=== PATIENT | male | born 1980 | race Two or more races ===

== ENCOUNTER 2020-11-23 22:27 | Inpatient (IN) | payer MEDICAID, OTHER ==
[~2020-11-23] VITALS: Ht 165.1 cm; Wt 118.4 kg
--- NOTE | 2020-11-23 22:31 | NUR ---
MARTHA 61 FROM HOME FOR POSSIBLE TONIC CLONIC SEIZURE X 1 MIN. FIELD BS 118, PT AAOX4, -SOB, NOT IN ACUTE DISTRESS, VSS, PENDING ER PROVIDER RAYA
--- NOTE | 2020-11-23 22:52 | NUR ---
PIV STARTED, BLOOD COLLECTED, SENT TO LAB
[2020-11-23 23:13] LABS: BASOPHILS % (AUTO) 0.3 % (0.0-2.0); EOSINOPHILS % (AUTO) 1.8 % (0.0-6.0); HEMATOCRIT 40 % (39-51); HEMOGLOBIN 13.1 g/dL (13.5-17.5); LYMPHOCYTES # (AUTO) 3.2 /CMM (0.8-4.8); LYMPHOCYTES % (AUTO) 37.6 % (20.0-44.0); MEAN CORPUSCULAR HGB CONC 33 g/dl (31.0-36.0); MEAN CORPUSCULAR VOLUME 90 fL (80-96); MONOCYTES # (AUTO) 0.6 /CMM (0.1-1.30); MONOCYTES % (AUTO) 7.2 % (2.0-12.0); NEUTROPHILS # (AUTO) 4.6 /CMM (1.8-8.9); NEUTROPHILS % (AUTO) 53.1 % (43.0-81.0); PLATELET COUNT (AUTO) 258 /CMM (150-450); RED BLOOD CELL COUNT(AUTO) 4.45 MIL/uL (4.5-6.0); WHITE BLOOD COUNT (AUTO) 8.6 K/uL (4.3-11.0)
[2020-11-23 23:40] LABS: CALCIUM, SERUM 8.8 mg/dL (8.5-10.1); CARBON DIOXIDE 22 mmol/L (21-32); CHLORIDE 103 mmol/L (98-107); GLUCOSE 120 mg/dL (74-106); POTASSIUM 3.5 mmol/L (3.5-5.1); SODIUM SERUM 139 mmol/L (136-145); UREA NITROGEN, BLOOD 14 mg/dL (7-18)
[2020-11-23 23:46] LABS: ALANINE AMINOTRANSFERASE 48 U/L (12-78); ALCOHOL, BLOOD < 3 mg/dL (0-0); ALKALINE PHOSPHATASE 93 U/L (46-116); ASPARTATE AMINOTRANSFERASE 22 U/L (15-37); BILIRUBIN,DIRECT 0.1 mg/dL (0.0-0.2); BILIRUBIN,TOTAL 0.5 mg/dL (0.2-1.0); TOTAL PROTEIN, SERUM 9.1 g/dL (6.4-8.2)
[2020-11-24] MEDS ORDERED: HYDROCODONE/APAP 5/325MG TABLET PO PRN (01:00)
[2020-11-24] MEDS ORDERED: MAG HYDROX/AL HYDROX/SIMETH 30 ML UDC PO PRN (01:00)
[2020-11-24] MEDS ORDERED: LORAZEPAM INJ 2 MG/ML VIAL IV PRN (01:00)
[2020-11-24] MEDS ORDERED: ONDANSETRON HCL/PF 4 MG/2 ML VIAL IVP PRN (01:00)
[2020-11-24] MEDS ORDERED: ZOLPIDEM TARTRATE 5 MG TABLET PO PRN (01:00)
[2020-11-24] MEDS ORDERED: Z GUARD REMEDY 2 OZ OINT TP PRN (01:00)
[2020-11-24] MEDS ORDERED: ACETAMINOPHEN 325 MG TABLET PO PRN (01:00)
--- NOTE | 2020-11-24 01:44 | NUR ---
TELE 120-1
--- NOTE | 2020-11-24 01:52 | NUR ---
REPORT GIVEN TO CHARLOTTE OCONNOR FOR ISIAH
--- NOTE | 2020-11-24 02:00 | NUR ---
rn note. admission. pt being admitted for seizure at home witnessed by family. pt awake, alert. follow command. room air, sat 97%. no acute distress noted . hob elevated. seizure precaution initiated. will continue to monitor vitals
--- NOTE | 2020-11-24 02:18 | NUR ---
PT TRANSPORTED TO 1ST FLOOR
[2020-11-24 03:54] VITALS: BP 128/65
[2020-11-24 04:00] VITALS: BP 132/65
--- NOTE | 2020-11-24 05:51 | NUR ---
RN NOTE AM CARE GIVEN.DURING SHIFT NO SEIZURE ACTIVITY NOTED. AFEBRILE. 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 HOB ELEVATED. WILL CONTINUE TO MONITOR VITALS
--- NOTE | 2020-11-24 07:45 | NUR ---
TELE/RN PT IS RESTING IN THE BED .AWAKE,ALERT. V/S STABLE,AFEBRILE.ON ROOM AIR,SAT O2-99%.NO SEIZURES ACTIVITIES NOTED.IV-HL.SKIN INTACT. LABS REVIEW.
[2020-11-24 09:00] VITALS: BP 123/72
--- NOTE | 2020-11-24 09:00 | NUR ---
TELE/RN DUE MEDS ARE GIVEN ORDERED.PT EATS 100% FROM HIS BREAKFAST TRAY.MD SEEN THE PT.WAITING FOR NEUROLOGIST SEEN THE PT.
[2020-11-24] MEDS: ENOXAPARIN SODIUM 40 MG/0.4 ML DISP.SYRIN SQ SCH (09:25)
[2020-11-24 12:00] VITALS: BP 119/72
[2020-11-24] MEDS: IV NS 0.9% 1,000 ML IV PRN ×2 (13:22→22:42)
[2020-11-24 16:00] VITALS: BP 128/72
--- NOTE | 2020-11-24 19:30 | NUR ---
MS RN OPENING NOTE RECEIVED PATIENT IN BED. A/OX4. TOLERATING ROOM AIR. RESPIRATIONS ARE EVEN AND UNLABORED. NO S/S SOB NOTED. NO C/O PAIN. IN NO APPARENT DISTRESS. IV ACCESS IN LAC#18 PATENT AND SALINE LOCKED. BED IS LOW AND LOCKED, HOB ELEVATED IN SEMI FOWLERS, SIDE RIALS UP X2, CALL LIGHT WITHIN REACH. WILL CONTINUE TO MONITOR THROUGHOUT SHIFT.
[2020-11-24 20:00] VITALS: BP 116/69
[2020-11-25 04:00] VITALS: BP 114/68
[2020-11-25 06:00] LABS: BASOPHILS % (AUTO) 0.6 % (0.0-2.0); EOSINOPHILS % (AUTO) 2.4 % (0.0-6.0); HEMATOCRIT 37 % (39-51); HEMOGLOBIN 12.3 g/dL (13.5-17.5); LYMPHOCYTES # (AUTO) 2.7 /CMM (0.8-4.8); LYMPHOCYTES % (AUTO) 37.1 % (20.0-44.0); MEAN CORPUSCULAR HGB CONC 33 g/dl (31.0-36.0); MEAN CORPUSCULAR VOLUME 89 fL (80-96); MONOCYTES # (AUTO) 0.6 /CMM (0.1-1.30); MONOCYTES % (AUTO) 8.3 % (2.0-12.0); NEUTROPHILS # (AUTO) 3.7 /CMM (1.8-8.9); NEUTROPHILS % (AUTO) 51.6 % (43.0-81.0); PLATELET COUNT (AUTO) 222 /CMM (150-450); RED BLOOD CELL COUNT(AUTO) 4.14 MIL/uL (4.5-6.0); WHITE BLOOD COUNT (AUTO) 7.2 K/uL (4.3-11.0)
--- NOTE | 2020-11-25 06:18 | NUR ---
MS RN CLOSING NOTE PATIENT RESTING IN BED. A/OX4. REMAINS TOLERATING ROOM AIR. NO RESP [id number]. NO PAIN. NO DISTRESS. NO SEIZURE ACTIVITY NOTED. IV ACCESS MAINTAINED IN LAC#18. BED REMAINS LOW AND LOCKED, HOB ELEVATED IN SEMI FOWLERS, SIDE RIALS UP X2, CALL LIGHT WITHIN REACH. WILL ENDORSE TO ONCOMING SHIFT.
[2020-11-25 06:21] LABS: CALCIUM, SERUM 8.2 mg/dL (8.5-10.1); CREATININE 0.8 mg/dL (0.6-1.3); MAGNESIUM 2.4 mg/dL (1.8-2.4); PHOSPHORUS 3.9 mg/dL (2.5-4.9); POTASSIUM 3.5 mmol/L (3.5-5.1)
--- NOTE | 2020-11-25 08:00 | NUR ---
RN NOTES RECEIVED PATIENT IN THE BED A/O X4, NO ACUTE RESPIRATORY DISTRESS, NO COMPLAINING OF PAIN, NO SEIZURE. SIDE RAILS PADDED FOR SAFETY. DUE MEDICATION ADMINISTERED, VSS. SEEN HOSPITALIST, MD HUNTER. ACCORDING HOSPITALIST PATIENT WILL DISCHARGE HOME, AND WILL FOLLOW PCP. CALL LIGHT WITHIN TO REACH. WILL MONITORING.
[2020-11-25] MEDS: ENOXAPARIN SODIUM 40 MG/0.4 ML DISP.SYRIN SQ SCH (08:35)
[2020-11-25 12:00] VITALS: BP 125/71
--- NOTE | 2020-11-25 12:31 | NUR ---
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 Patient stable no seizure disorder, no respiratory distress, refused pain, VSS. Patient seen hospitalist Dr Norris, and neurologist Dr Coates. According neurologist patient does not need medication at this time, No parenchymal mass, infarct or evidence of acute transcortical infarct. Question arachnoid cysts medial aspect right and left middle cranial fossa episode may have been a syncopal episode. Either way it was likely provoked due to insomnia/fatigue, dehydration, but will follow primary md, and increase fluid intake. Discharge order explained to the patient, patient sign paperwork, and verbalized understanding. Belonging with the patient. Escorted patient to the [facility] for safety. Patient pickup via name Kristan Avendano phone# .
== END 2020-11-25 12:46 | disposition home or self-care (01) | DRG 53 ==
LOC: ER 22:29 → TELE1 11-24 01:44 → MEDSG1 11-24 09:36
PROVIDERS: ADMIT Internal Medicine; ATTEND Internal Medicine
DX: R56.9 Unspecified convulsions (principal); N17.0 Acute kidney failure with tubular necrosis; E87.2 Acidosis; E66.9 Obesity, unspecified; Z68.41 Body mass index [BMI] 40.0-44.9, adult; E86.0 Dehydration; Z20.822 Contact with and (suspected) exposure to COVID-19
CPT/HCPCS: 36415; 70450-TC; 71045-TC; 80048-TC; 80061-TC; 80076-TC; 82962-TC; 83735-TC; 84100-TC; 84484-TC; 85025-TC; 87081-TC; C9803; G0378; G0480; J1650; J7030